=== PATIENT | male | born 1985 | race Hispanic/Latino ===

== ENCOUNTER 2018-01-05 06:20 | Emergency (ER) | payer SELFPAY ==
[~2018-01-05] VITALS: Ht 170.2 cm; Wt 70.3 kg
[2018-01-05 06:22] VITALS: BP 149/105
[2018-01-05] MEDS ORDERED: LORazepam Inj 2mg/ml 1ml IV ONE (06:30)
--- NOTE | 2018-01-05 06:31 | Emergency Room Report ---
History of Present Illness General Chief Complaint: Palpitations Source: Patient Present Illness HPI Is a 32-year-old male who has history of HIV. The last 3 days he been on a drug binge. He said is using crystal methamphetamine, cocaine, methamphetamine to name a few. He called 911 from a corner as he has palpitation and shortness of breath. No suicidal thoughts or homicidal thought. No nausea no vomiting. No other complaint. Allergies: Coded Allergies: No Known Allergies (Unverified , 01/05/18) Patient History Past Medical History: see triage record, old chart reviewed, HIV Past Surgical History: other Pertinent Family History: none Social History: Reports: smoking, alcohol use, drug use Immunizations: other Reviewed Nursing Documentation: PMH: Agreed, PSxH: Agreed Nursing Documentation-PMH Past Medical History: No Stated History Hx Cardiac Problems: No - HIV + Review of Systems Eye: Denies: eye pain, blurred vision ENT: Denies: ear pain, nose congestion, throat swelling Respiratory: Denies: cough, shortness of breath Cardiovascular: Reports: palpitations, Denies: chest pain Gastrointestinal: Denies: abdominal pain, diarrhea, nausea, vomiting Musculoskeletal: Denies: back pain, joint pain Skin: Denies: rash Neurological: Denies: headache, numbness Endocrine: Denies: increased thirst, increased urine Hematologic/Lymphatic: Denies: easy bruising All Other Systems: negative except mentioned in HPI Physical Exam Vital Signs Date Time Temp Pulse Resp B/P (MAP) Pulse Ox O2 Delivery O2 Flow Rate FiO2 01/05/18 06:11 98.2 82 16 149/105 99 Room Air vitals unremarkable Sp02 EP Interpretation: reviewed, normal General Appearance: well appearing, no apparent distress, alert Head: normocephalic, atraumatic Eyes: bilateral eye PERRL, bilateral eye EOMI ENT: hearing grossly normal, normal pharynx Neck: full range of motion, supple, no meningismus Respiratory: chest non-tender, lungs clear, normal breath sounds Cardiovascular #1: regular rate, rhythm, no murmur, tachycardia Gastrointestinal: normal bowel sounds, non tender, no mass, no organomegaly, no bruit, non-distended Musculoskeletal: back normal, gait/station normal, normal range of motion Psychiatric: mood/affect normal Skin: warm/dry Medical Decision Making Diagnostic Impression: Primary Impression: Palpitations Additional Impression: Substance abuse ER Course Patient with palpation secondary to substance abuse. His heart rate still in the 110 here. Blood pressure stable. Patient better after IV fluid and Ativan we will discharge home. monitor showed a sinus tachycardia. No suicidal thought homicidal thought. No criteria for 5150. Last Vital Signs Date Time Temp Pulse Resp B/P (MAP) Pulse Ox O2 Delivery O2 Flow Rate FiO2 01/05/18 06:11 98.2 82 16 149/105 99 Room Air Status: improved Disposition: HOME, SELF-CARE Condition: Stable Additional Instructions: Stop using drugs. Followup with rehabilitation. Return if symptom worsen. Followup your DrIggy in 7 days. SRIDHAR ROBIN M.D. Jan 05, 2018 06:30
[2018-01-05 06:44] VITALS: BP 153/95
[2018-01-05 07:15] VITALS: BP 138/92
[2018-01-05 09:03] VITALS: BP 147/84
== END 2018-01-05 09:09 | disposition home or self-care (01) ==
LOC: EDBD 06:20 → EMR 06:24
DX: R00.2 Palpitations (principal); F15.10 Other stimulant abuse, uncomplicated; F14.10 Cocaine abuse, uncomplicated; F17.200 Nicotine dependence, unspecified, uncomplicated
CPT/HCPCS: 96361; 96374; 99284